=== PATIENT | female | born 1995 | race Caucasian/White ===

== ENCOUNTER 2018-04-14 21:09 | Emergency (ER) | payer OTHER ==
[2018-04-14 21:21] VITALS: BP 119/72
--- NOTE | 2018-04-14 21:38 | UC ---
Minor Trauma HPI - HPI Summary HPI Summary: 23-year-old female presents stating she was exercising at the gym with some resistance equipment when the equipment broke free and struck her across the bridge of her nose approximately one hour ago. Denies loss of consciousness, headache, dizziness, eye pain, double vision, blurred vision, photophobia, epistaxis, nasal drainage, inability to breathe through her nose, neck pain, dental pain, loose teeth, malocclusion, or other injury. - History of Current Complaint Chief Complaint: UCTrauma Stated Complaint: NOSE INJURY Time Seen by Provider: 04/14/18 21:14 Hx Obtained From: Patient Hx Last Menstrual Period: 04/13/2018 Pain Intensity: 7 - Allergies/Home Medications Allergies/Adverse Reactions: Allergies Allergy/AdvReac Type Severity Reaction Status Date / Time menthol Allergy Rash Verified 04/14/18 21:16 Home Medications: Home Medications Bcp 1 tab PO DAILY 04/14/18 [History] Fluoxetine HCl [Prozac] 30 mg PO DAILY 04/14/18 [History Confirmed 04/14/18] PMH/Surg Hx/FS Hx/Imm Hx Previously Healthy: Yes - Denies significant PMH - Surgical History Surgical History: None - Family History Known Family History: Positive: Non-Contributory - Social History Occupation: Student Lives: Dormitory/Roommates Alcohol Use: Weekly Substance Use Type: None Smoking Status (MU): Never Smoked Tobacco Review of Systems All Other Systems Reviewed And Are Negative: Yes Constitutional: Positive: Negative Skin: Negative: Bruising Eyes: Negative: Blurred Vision, Diplopia, Photophobia ENT: Negative: Epistaxis, Dental Pain, Nasal Discharge Respiratory: Positive: Negative Cardiovascular: Positive: Negative Gastrointestinal: Positive: Negative Genitourinary: Positive: Negative Musculoskeletal: Positive: Negative Neurological: Negative: Headache, Weakness, Paresthesia, Numbness Is Patient Immunocompromised?: No Physical Exam - Summary Physical Exam Summary: GENERAL APPEARANCE: Well developed, well nourished, alert and cooperative, and appears to be in no acute distress. HEAD: Normocephalic. EYES: PERRL, EOM intact. Vision is grossly intact. EARS: External auditory canals and tympanic membranes clear, hearing grossly intact. NOSE: Patent bilateral nares. No nasal discharge, epistaxis, or septal hematoma noted. THROAT: Oral cavity and pharynx normal. No inflammation, swelling, exudate, or lesions. Teeth and gingiva in good general condition. No malocclusion NECK: Neck supple, non-tender. Full painless cervical ROM. CARDIAC: Normal S1 and S2. No S3, S4 or murmurs. Rhythm is regular. There is no peripheral edema, cyanosis or pallor. Extremities are warm and well perfused. Capillary refill is less than 2 seconds. LUNGS: Clear to auscultation without rales, rhonchi, wheezing or diminished breath sounds. ABDOMEN: Positive bowel sounds. Soft, nondistended, nontender. No guarding or rebound. No masses or hepatosplenomegally. MUSKULOSKELETAL: ROM intact to all extremities. No joint erythema or tenderness. Normal muscular development. Normal gait. NEUROLOGICAL: CN II-XII intact. Strength and sensation symmetric and intact throughout. SKIN: Skin normal color, texture and turgor with no lesions or eruptions. Triage Information Reviewed: Yes Vital Signs: Initial Vital Signs Temp 97.7 F 04/14/18 21:14 Pulse 65 04/14/18 21:14 Resp 18 04/14/18 21:14 BP 119/72 04/14/18 21:14 Pulse Ox 99 04/14/18 21:14 Vital Signs Reviewed: Yes Minor Trauma Course/Dx - Course Course Of Treatment: 23-year-old female presents stating she was exercising at the gym with some resistance equipment when the equipment broke free and struck her across the bridge of her nose approximately one hour ago. Denies loss of consciousness, headache, dizziness, eye pain, double vision, blurred vision, photophobia, epistaxis, nasal drainage, inability to breathe through her nose, neck pain, dental pain, loose teeth, malocclusion, or other injury. Afebrile. Vital signs stable. Exam reveals a young adult female in no acute distress with tenderness and mild swelling to the bridge of her nose without ecchymosis, lesions, or gross deformity, bilaterally patent nares without epistaxis or nasal drainage, no septal hematoma, extraocular eye movements intact, PERRL, remainder of the facial bones nontender without crepitus or deformity, supple, nontender cervical spine with full painless range of motion, and otherwise unremarkable exam. Suspect she probably has a mild nondisplaced nasal fracture however with the isolated pain and swelling with patent nares, and no gross deformity, and no septal hematomas there is no indication for x-rays at this time. Recommending conservative treatment with [id number] analgesics, ice , and head elevation with follow-up with ENT in 3-5 days. Anticipatory guidance and warning symptoms reviewed with the patient. Verbalizes understanding and agrees with plan of care. - Differential Dx/Diagnosis Differential Diagnosis/HQI/PQRI: Fracture, Dislocation Provider Diagnosis: Nasal injury Discharge - Sign-Out/Discharge Documenting (check all that apply): Patient Departure All imaging exams completed and their final reports reviewed: No Studies - Discharge Plan Condition: Stable Disposition: HOME Patient Education Materials: Nasal Fracture (ED) Referrals: No Primary Care Phys,NOPCP [Primary Care Provider] - Fahad Vasquez MD [Medical Doctor] - 5 Days (Call first thing tomorrow morning for appointment.) Additional Instructions: Based on your history and exam you likely have a minor fracture of the nasal bone. Minor fractures typically will heal well on their own and do not require any further treatment. Take acetaminophen (Tylenol) or ibuprofen (Advil, Motrin) according to directions as needed for pain. Apply ice to the bridge of your nose for 15-20 minutes at least 4 times a day to help with pain and swelling. Sleep with your head elevated using a couple pillows to help reduce swelling. Follow up with Dr. Vasquez, otolaryngology (ears, nose, and throat), within 5 days for recheck of symptoms. Call first thing tomorrow morning for appointment. Seek immediate medical attention in the emergency room if you develop fever greater than 100.5 F, have a severe headache, visual disturbances, become dizzy , develop a nose bleed that will not stop with direct pressure, you are unable to breath through your nose, severe pain that is not managed with pain medication, or any worsening of symptoms. - Billing Disposition and Condition Condition: STABLE Disposition: Home - Attestation Statements Provider Attestation: Per institutional requirements, I have reviewed the chart, however, I was not consulted specifically or made aware of this patient by the midlevel provider. I did not personally evaluate, interact with , or disposition this patient.
[2018-04-14] MEDS ORDERED: Ibuprofen TAB* 600 MG PO ONE (21:45)
== END 2018-04-14 21:54 | disposition home or self-care (01) ==
LOC: UCEAST 21:09
DX: S09.92XA Unspecified injury of nose, initial encounter (principal); W22.8XXA Striking against or struck by other objects, initial encounter; Y92.89 Other specified places as the place of occurrence of the external cause; Z88.8 Allergy status to other drugs, medicaments and biological substances
CPT/HCPCS: 99202; A9270-GY; G0463